=== PATIENT | female | born 1995 | race Two or more races ===

== ENCOUNTER 2018-12-11 11:34 | Emergency (ER) | payer MEDICAID ==
[~2018-12-11] VITALS: Ht 167.6 cm; Wt 77.3 kg
[~2018-12-11 11:34] MED LIST: EZFE 200200 MG PO; IBUPROFEN600 MG PO; PERCOCET 10/3251 TA1 PO
[2018-12-11 11:37] VITALS: Ht 167.6 cm; Wt 77.3 kg
[2018-12-11 11:57] LABS: BASOPHILS 0.3 % (0-2); EOSINOPHILS 1.7 % (0-7); HEMATOCRIT 37.9 % (36.0-48.0); HEMOGLOBIN 12.9 g/dL (12-16); IMMATURE GRANULOCYTES 0.4 % (0-5); LYMPHOCYTES 19.4 % (15-50); MCH 31.2 pg (26.0-34.0); MCV 91.8 fL (80.0-100.0); MEAN PLATELET VOLUME 9.4 fL (7.4-10.4); NEUTROPHILS 71.2 % (40-80); PLATELET COUNT 318 10x3/uL (130-400); RBC 4.13 10x6/uL (4.00-5.40); RDW 12.2 % (11.5-14.5)
[2018-12-11 12:10] LABS: HCG SERUM NEGATIVE (NEGATIVE)
[2018-12-11 12:11] LABS: ALBUMIN 3.7 g/dL (3.4-5.0); ALKALINE PHOSPHATASE 74 U/L (46-116); ALT (SGPT) 30 U/L (10-68); BILIRUBIN - TOTAL 0.44 mg/dL (0.2-1.3); CALC OSMOLALITY 275 mosm/kg (275-300); CALCIUM 9.1 mg/dL (8.5-10.1); CARBON DIOXIDE 26.6 mmol/L (21.0-32.0); CHLORIDE - SERUM 104 mmol/L (98-107); CREATININE - SERUM 0.7 mg/dL (0.6-1.3); GLUCOSE 122 mg/dL (74-106); POTASSIUM - SERUM 3.7 mmol/L (3.5-5.1); PROTEIN - SERUM 7.4 g/dL (6.4-8.2); SODIUM 138 mmol/L (136-145); UREA NITROGEN 11 mg/dL (7-18); eGFR NON AFRICAN AMERICAN > 90 mL/min (90-120)
[2018-12-11 12:14] LABS: AMYLASE - SERUM 34 U/L (25-115); LIPASE 88 U/L (73-393)
[2018-12-11 12:17] LABS: TROPONIN-I < 0.017 ng/mL (0.000-0.060)
[2018-12-11 12:21] LABS: APPEARANCE CLEAR (CLEAR); BILIRUBIN NEGATIVE (NEGATIVE); COLOR YELLOW (YELLOW); GLUCOSE NEGATIVE (NEGATIVE); KETONE NEGATIVE (NEGATIVE); NITRITE NEGATIVE (NEGATIVE); PROTEIN NEGATIVE (NEGATIVE); UROBILINOGEN NORMAL (NORMAL)
[2018-12-11] MEDS ORDERED: TORADOL10 MG PO (13:06)
[2018-12-11] MEDS ORDERED: KEFLEX500 MG PO (13:06)
[2018-12-11 13:20] VITALS: BP 117/72
== END 2018-12-11 13:15 | disposition home or self-care (01) ==
LOC: D.ER 11:34
PROVIDERS: Family Medicine
DX: L02.211 Cutaneous abscess of abdominal wall (principal)